=== PATIENT | male | born 1935 | race Two or more races ===

== ENCOUNTER → 2017-10-23 09:17 | Outpatient (CLI) | payer OTHER | END | disposition home or self-care (01) | LOC: LAB 09:17 | DX: D51.0 Vitamin B12 deficiency anemia due to intrinsic factor deficiency (principal); D51.1 Vitamin B12 deficiency anemia due to selective vitamin B12 malabsorption with proteinuria; K70.30 Alcoholic cirrhosis of liver without ascites; D69.49 Other primary thrombocytopenia; I10 Essential (primary) hypertension; E11.9 Type 2 diabetes mellitus without complications; E03.8 Other specified hypothyroidism; K70.0 Alcoholic fatty liver; K80.20 Calculus of gallbladder without cholecystitis without obstruction; D50.8 Other iron deficiency anemias; N18.9 Chronic kidney disease, unspecified; I12.9 Hypertensive chronic kidney disease with stage 1 through stage 4 chronic kidney disease, or unspecified chronic kidney disease; E11.21 Type 2 diabetes mellitus with diabetic nephropathy; E78.4 Other hyperlipidemia; E11.29 Type 2 diabetes mellitus with other diabetic kidney complication; R80.8 Other proteinuria ==

== ENCOUNTER 2017-10-26 10:03 | Outpatient (CLI) | payer OTHER | END 2017-10-26 10:10 | disposition home or self-care (01) | LOC: LAB 10:03 | DX: N18.9 Chronic kidney disease, unspecified (principal); R80.9 Proteinuria, unspecified; I12.9 Hypertensive chronic kidney disease with stage 1 through stage 4 chronic kidney disease, or unspecified chronic kidney disease; E11.21 Type 2 diabetes mellitus with diabetic nephropathy ==

== ENCOUNTER 2018-03-12 09:34 | Outpatient (CLI) | payer OTHER | END 2018-03-12 09:35 | disposition home or self-care (01) | LOC: LAB 09:34 | DX: D51.0 Vitamin B12 deficiency anemia due to intrinsic factor deficiency (principal); D51.1 Vitamin B12 deficiency anemia due to selective vitamin B12 malabsorption with proteinuria; K70.30 Alcoholic cirrhosis of liver without ascites; D69.49 Other primary thrombocytopenia; I10 Essential (primary) hypertension; E11.9 Type 2 diabetes mellitus without complications; E03.8 Other specified hypothyroidism; K70.0 Alcoholic fatty liver; K80.20 Calculus of gallbladder without cholecystitis without obstruction; D50.8 Other iron deficiency anemias; D51.8 Other vitamin B12 deficiency anemias ==

== ENCOUNTER → 2018-09-08 09:32 | Outpatient (CLI) | payer OTHER | END | disposition home or self-care (01) | LOC: LAB 09:32 | DX: D51.0 Vitamin B12 deficiency anemia due to intrinsic factor deficiency (principal); D51.1 Vitamin B12 deficiency anemia due to selective vitamin B12 malabsorption with proteinuria; K70.30 Alcoholic cirrhosis of liver without ascites; D69.49 Other primary thrombocytopenia; I10 Essential (primary) hypertension; E11.9 Type 2 diabetes mellitus without complications; E03.8 Other specified hypothyroidism; K70.0 Alcoholic fatty liver; K80.20 Calculus of gallbladder without cholecystitis without obstruction; D50.8 Other iron deficiency anemias; D51.8 Other vitamin B12 deficiency anemias; E55.9 Vitamin D deficiency, unspecified; K90.89 Other intestinal malabsorption; D68.8 Other specified coagulation defects; R97.0 Elevated carcinoembryonic antigen [CEA] ==

== ENCOUNTER 2018-11-18 09:25 | Outpatient (CLI) | payer OTHER | END 2018-11-18 11:17 | disposition home or self-care (01) | LOC: LAB 09:25 | DX: D51.0 Vitamin B12 deficiency anemia due to intrinsic factor deficiency (principal); D51.1 Vitamin B12 deficiency anemia due to selective vitamin B12 malabsorption with proteinuria; K70.30 Alcoholic cirrhosis of liver without ascites; D69.49 Other primary thrombocytopenia; I10 Essential (primary) hypertension; E11.9 Type 2 diabetes mellitus without complications; E03.8 Other specified hypothyroidism; K70.0 Alcoholic fatty liver; K80.20 Calculus of gallbladder without cholecystitis without obstruction; D50.8 Other iron deficiency anemias; D51.8 Other vitamin B12 deficiency anemias; D68.8 Other specified coagulation defects; R97.0 Elevated carcinoembryonic antigen [CEA] ==

== ENCOUNTER 2019-01-06 09:31 | Outpatient (CLI) | payer OTHER | END 2019-01-06 10:18 | disposition home or self-care (01) | LOC: LAB 09:31 | DX: C22.0 Liver cell carcinoma (principal); C64.1 Malignant neoplasm of right kidney, except renal pelvis; D51.0 Vitamin B12 deficiency anemia due to intrinsic factor deficiency; K70.30 Alcoholic cirrhosis of liver without ascites; D69.49 Other primary thrombocytopenia; I10 Essential (primary) hypertension; E11.9 Type 2 diabetes mellitus without complications; E03.8 Other specified hypothyroidism; K70.0 Alcoholic fatty liver; K80.20 Calculus of gallbladder without cholecystitis without obstruction; D50.8 Other iron deficiency anemias; D51.8 Other vitamin B12 deficiency anemias; D68.8 Other specified coagulation defects; R97.0 Elevated carcinoembryonic antigen [CEA]; R97.8 Other abnormal tumor markers; N18.3 Chronic kidney disease, stage 3 (moderate) ==

== ENCOUNTER 2019-01-09 12:16 | Outpatient (CLI) | payer OTHER | END 2019-01-09 12:29 | disposition home or self-care (01) | LOC: LAB 12:16 | DX: N18.3 Chronic kidney disease, stage 3 (moderate) (principal) ==

== ENCOUNTER 2019-04-28 09:47 | Outpatient (CLI) | payer OTHER | END 2019-04-28 10:13 | disposition home or self-care (01) | LOC: LAB 09:47 | DX: C22.0 Liver cell carcinoma (principal); C64.1 Malignant neoplasm of right kidney, except renal pelvis; D51.0 Vitamin B12 deficiency anemia due to intrinsic factor deficiency; D51.1 Vitamin B12 deficiency anemia due to selective vitamin B12 malabsorption with proteinuria; K70.30 Alcoholic cirrhosis of liver without ascites; D69.49 Other primary thrombocytopenia; I10 Essential (primary) hypertension; E11.9 Type 2 diabetes mellitus without complications; E03.8 Other specified hypothyroidism; K70.0 Alcoholic fatty liver; K80.20 Calculus of gallbladder without cholecystitis without obstruction; R97.0 Elevated carcinoembryonic antigen [CEA]; R97.8 Other abnormal tumor markers; C22.9 Malignant neoplasm of liver, not specified as primary or secondary; C25.9 Malignant neoplasm of pancreas, unspecified; R94.5 Abnormal results of liver function studies ==